=== PATIENT | male | born 1970 | race Caucasian/White ===

== ENCOUNTER 2017-12-03 14:47 | Inpatient (IN) | payer OTHER ==
[2017-12-03 17:05] VITALS: BMI 22.4
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
[2017-12-03] MEDS ORDERED: ACETAMINOPHEN 325 MG TABLET (FP) PO PRN (17:35)
[2017-12-03] MEDS ORDERED: MAGNESIUM CITRATE 300 ML BOTTLE PO PRN (17:35)
[2017-12-03] MEDS ORDERED: NICOTINE POLACRILEX 2 MG GUM BC PRN (17:35)
[2017-12-03] MEDS ORDERED: guaiFENesin/D-METHORPHAN HB 10 ML UNIT-DOSE CUPS PO PRN (17:35)
[2017-12-03] MEDS ORDERED: IBUPROFEN 400 MG TABLET (FP) PO PRN (17:35)
[2017-12-03] MEDS ORDERED: LOPERAMIDE HCL 2 MG CAPSULE PO PRN (17:35)
[2017-12-03] MEDS ORDERED: P-EPHED 60MG/TRIPROLIDI 2.5MG TABLET PO PRN (17:35)
[2017-12-03] MEDS ORDERED: MAGNESIUM HYDROX 2400MG/30ML ORAL SUSPENSION 30 ML CUP PO PRN (17:35)
[2017-12-03] MEDS ORDERED: hydrOXYzine PAMOATE 50 MG CAPSULE (FP) PO PRN (17:35)
[2017-12-03] MEDS ORDERED: MENTHOL/PHENOL 1 EACH UD MM PRN (17:35)
[2017-12-03] MEDS ORDERED: METHADONE HCL 10 MG TABLET (FOR DETOX USE ONLY) PO ONE ×2 (20:30→23:00)
[2017-12-03] MEDS: diazePAM 5 MG TABLET PO PRN (21:22)
[2017-12-03] MEDS: THIAMINE HCL 100 MG TABLET (FP) PO SCH (21:30)
[2017-12-03] MEDS ORDERED: MELATONIN 5 MG TABLETS PO PRN (22:00)
[2017-12-03 23:17] LABS: URINE APPEARANCE TURBID; URINE BILIRUBIN NEGATIVE (<2.0 mg/dL); URINE COLOR YELLOW; URINE GLUCOSE (UA) NEGATIVE (NEGATIVE); URINE KETONE NEGATIVE (NEGATIVE); URINE LEUK ESTERASE NEGATIVE (NEGATIVE); URINE NITRITE NEGATIVE (NEGATIVE); URINE PROTEIN NEGATIVE (NEGATIVE)
[2017-12-04] MEDS ORDERED: METHADONE HCL 10 MG TABLET (FOR DETOX USE ONLY) PO ONE (10:00)
[2017-12-04] MEDS: NICOTINE 14 MG/24 HOURS TOPICAL PATCH TD SCH (10:17)
[2017-12-04] MEDS: PRENATAL VITAMINS W/ FOLIC ACID TABLET (FP) PO SCH (10:17)
[2017-12-04 10:37] LABS: CHLORIDE 105 mmol/L (98-107); POTASSIUM 4.1 mmol/L (3.5-5.1); SODIUM 142 mmol/L (136-145)
[2017-12-04 10:41] LABS: HEMATOCRIT 37.7 % (35.4-49); HEMOGLOBIN 12.9 GM/dL (11.7-16.9); MCH 32.9 pg (25.7-33.7); MCHC 34.2 g/dl (32.0-35.9); MEAN CELL VOLUME 96.2 fl (80-96); MEAN PLT VOLUME 8.2 fl (7.5-11.1); PLATELET COUNT 284 K/MM3 (134-434); RBC 3.92 M/mm3 (4.00-5.60); RDW 12.8 % (11.9-15.9); WHITE BLOOD COUNT 7.4 K/mm3 (4.0-10.0)
[2017-12-04 10:49] LABS: ALBUMIN 3.8 g/dl (3.4-5.0); ALK PHOS 78 U/L (45-117); ANION GAP 8 (8-16); BILIRUBIN,TOTAL 1.2 mg/dL (0.2-1.0); BLOOD UREA NITROGEN 13 mg/dL (7-18); CALCIUM 8.9 mg/dL (8.5-10.1); CO2 29 mmol/L (21-32); CREATININE 0.9 mg/dL (0.7-1.3); GLUCOSE,RANDOM 106 mg/dL (74-106); SGOT/AST 18 U/L (15-37); SGPT/ALT 23 U/L (12-78); TOT PROT 7.2 g/dl (6.4-8.2)
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
--- NOTE | 2017-12-04 12:24 | PN ---
BHS COWS - Scale Resting Pulse: 0= [place] 80 or Below Sweatin= Chills/Flushing Restless Observation: 1= Difficult to Sit Still Pupil Size: 0= Normal to Room Light Bone or Joint Aches: 2= Severe Diffuse Aches Runny Nose/ Eye Tearin= Nasal Congestion GI Upset > 30mins: 1= Stomach Cramp Tremor Observation of Outstretched Hands: 0= None Yawning Observation: 2= >3x During Session Anxiety or Irritability: 2=Irritable/Anxious Goose Flesh Skin: 3=Piloerection COWS Score: 13 BHS Progress Note (SOAP) Subjective: Sweating, Fatigue, Body Aches. Objective: PATIENT A & O X 3, OBSERVED AMBULATING ON UNIT. NO ACUTE DISTRESS. 12/04/17 12:27 Vital Signs Temperature 97.6 F 12/04/17 10:04 Pulse Rate 58 L 12/04/17 10:04 Respiratory Rate 20 12/04/17 10:04 Blood Pressure 95/60 12/04/17 10:04 O2 Sat by Pulse Oximetry (%) Laboratory Tests 12/03/17 12/04/17 12/04/17 Unknown 08:15 08:15 WBC 7.4 RBC 3.92 L Hgb 12.9 Hct 37.7 MCV 96.2 H MCH 32.9 MCHC 34.2 RDW 12.8 Plt Count 284 MPV 8.2 Sodium 142 Potassium 4.1 Chloride 105 Carbon Dioxide 29 Anion Gap 8 BUN 13 Creatinine 0.9 Creat Clearance w eGFR > 60 Random Glucose 106 D Calcium 8.9 Total Bilirubin 1.2 H AST 18 ALT 23 Alkaline Phosphatase 78 Total Protein 7.2 Albumin 3.8 Urine Color Yellow Urine Appearance Turbid Urine pH 5.0 Ur Specific [place] 1.032 Urine Protein Negative Urine Glucose (UA) Negative Urine Ketones Negative Urine Blood Negative Urine Nitrite Negative Urine Bilirubin Negative Urine Urobilinogen 2.0 Ur Leukocyte Esterase Negative RPR Titer HIV 1&2 Antibody Screen HIV P24 Antigen 12/04/17 12/04/17 08:15 08:15 WBC RBC Hgb Hct MCV MCH MCHC RDW Plt Count MPV Sodium Potassium Chloride Carbon Dioxide Anion Gap BUN Creatinine Creat Clearance w eGFR Random Glucose Calcium Total Bilirubin AST ALT Alkaline Phosphatase Total Protein Albumin Urine Color Urine Appearance Urine pH Ur Specific [place] Urine Protein Urine Glucose (UA) Urine Ketones Urine Blood Urine Nitrite Urine Bilirubin Urine Urobilinogen Ur Leukocyte Esterase RPR Titer Nonreactive HIV 1&2 Antibody Screen Negative HIV P24 Antigen Negative LABS NOTED. Assessment: 12/04/17 12:28 WITHDRAWAL SYMPTOMS. Plan: CONTINUE DETOX. INCREASE DAILY PO FLUID INTAKE.
[2017-12-04] MEDS: diazePAM 5 MG TABLET PO PRN (12:55)
--- NOTE | 2017-12-04 13:11 | EKG ---
Test Reason : Blood Pressure : / mmHG Vent. Rate : 050 BPM Atrial Rate : 050 BPM P-R Int : 154 ms QRS Dur : 082 ms QT Int : 432 ms P-R-T Axes : 073 057 048 degrees QTc Int : 393 ms SINUS BRADYCARDIA OTHERWISE NORMAL ECG NO PREVIOUS ECGS AVAILABLE Confirmed by MD MILTON, AKIRA ([id number]) on 12/04/2017 1:10:45 PM Referred By: Confirmed By:AKIRA ROSE MD
[2017-12-04] MEDS: risperiDONE 1 MG TABLET (FP) PO SCH (22:19)
[2017-12-04] MEDS: THIAMINE HCL 100 MG TABLET (FP) PO SCH (22:19)
[2017-12-04] MEDS: ZOLPIDEM TARTRATE 10 MG TABLET (PARK CARE ONLY) PO PRN (22:21)
[2017-12-05] MEDS ORDERED: METHADONE HCL 5 MG TABLET (FOR DETOX USE ONLY) PO ONE (10:00)
[2017-12-05] MEDS: SERTRALINE HCL 50 MG TABLET (FP) PO SCH (10:16)
[2017-12-05] MEDS: PRENATAL VITAMINS W/ FOLIC ACID TABLET (FP) PO SCH (10:16)
[2017-12-05] MEDS: diazePAM 5 MG TABLET PO PRN ×3 (10:16→22:09)
[2017-12-05] MEDS: NICOTINE 14 MG/24 HOURS TOPICAL PATCH TD SCH (10:16)
[2017-12-05] MEDS ORDERED: NAPROXEN 375 MG TABLET (FP) PO ONE (15:05)
[2017-12-05] MEDS: LIDOCAINE 5% TOPICAL PATCH TP SCH (15:25)
[2017-12-05] MEDS: MAG HYDROX/AL HYDROX/SIMETH 30 ML UNIT-DOSE CUP PO PRN (15:25)
--- NOTE | 2017-12-05 16:38 | PN ---
BHS COWS - Scale Resting Pulse: 0= [place] 80 or Below Sweatin= Chills/Flushing Restless Observation: 1= Difficult to Sit Still Pupil Size: 0= Normal to Room Light Bone or Joint Aches: 4=Acute Joint/Muscle Pain Runny Nose/ Eye Tearin= None GI Upset > 30mins: 0= None Tremor Observation of Outstretched Hands: 0= None Yawning Observation: 1= 1-2x During Session Anxiety or Irritability: 2=Irritable/Anxious Goose Flesh Skin: 3=Piloerection COWS Score: 12 BHS Progress Note (SOAP) Subjective: Sweating, Fatigue, Body Aches. Objective: PATIENT A & O X 3, OBSERVED AMBULATING ON UNIT. NO ACUTE DISTRESS. 12/05/17 16:36 Vital Signs Temperature 96.8 F L 12/05/17 14:01 Pulse Rate 64 12/05/17 14:01 Respiratory Rate 18 12/05/17 14:01 Blood Pressure 120/73 12/05/17 14:01 O2 Sat by Pulse Oximetry (%) Laboratory Tests 12/03/17 12/04/17 12/04/17 Unknown 08:15 08:15 WBC 7.4 RBC 3.92 L Hgb 12.9 Hct 37.7 MCV 96.2 H MCH 32.9 MCHC 34.2 RDW 12.8 Plt Count 284 MPV 8.2 Sodium 142 Potassium 4.1 Chloride 105 Carbon Dioxide 29 Anion Gap 8 BUN 13 Creatinine 0.9 Creat Clearance w eGFR > 60 Random Glucose 106 D Calcium 8.9 Total Bilirubin 1.2 H AST 18 ALT 23 Alkaline Phosphatase 78 Total Protein 7.2 Albumin 3.8 Urine Color Yellow Urine Appearance Turbid Urine pH 5.0 Ur Specific [place] 1.032 Urine Protein Negative Urine Glucose (UA) Negative Urine Ketones Negative Urine Blood Negative Urine Nitrite Negative Urine Bilirubin Negative Urine Urobilinogen 2.0 Ur Leukocyte Esterase Negative RPR Titer HIV 1&2 Antibody Screen HIV P24 Antigen 12/04/17 12/04/17 08:15 08:15 WBC RBC Hgb Hct MCV MCH MCHC RDW Plt Count MPV Sodium Potassium Chloride Carbon Dioxide Anion Gap BUN Creatinine Creat Clearance w eGFR Random Glucose Calcium Total Bilirubin AST ALT Alkaline Phosphatase Total Protein Albumin Urine Color Urine Appearance Urine pH Ur Specific [place] Urine Protein Urine Glucose (UA) Urine Ketones Urine Blood Urine Nitrite Urine Bilirubin Urine Urobilinogen Ur Leukocyte Esterase RPR Titer Nonreactive HIV 1&2 Antibody Screen Negative HIV P24 Antigen Negative LABS NOTED. Assessment: 12/05/17 16:37 WITHDRAWAL SYMPTOMS. Plan: CONTINUE DETOX. NAPROXEN, LIDODERM PATCH FOR BODY / BACK ACHES.
[2017-12-05] MEDS: THIAMINE HCL 100 MG TABLET (FP) PO SCH (22:08)
[2017-12-05] MEDS: risperiDONE 1 MG TABLET (FP) PO SCH (22:08)
[2017-12-05] MEDS: LIDOCAINE PATCH REMOVAL MC SCH (22:09)
[2017-12-05] MEDS: ZOLPIDEM TARTRATE 10 MG TABLET (PARK CARE ONLY) PO PRN (22:22)
[2017-12-05] MEDS: NAPROXEN 375 MG TABLET (FP) PO SCH (23:03)
[2017-12-06] MEDS ORDERED: METHADONE HCL 5 MG TABLET (FOR DETOX USE ONLY) PO ONE (10:00)
[2017-12-06] MEDS: PRENATAL VITAMINS W/ FOLIC ACID TABLET (FP) PO SCH (10:07)
[2017-12-06] MEDS: SERTRALINE HCL 50 MG TABLET (FP) PO SCH (10:07)
[2017-12-06] MEDS: LIDOCAINE 5% TOPICAL PATCH TP SCH (10:07)
[2017-12-06] MEDS: NICOTINE 14 MG/24 HOURS TOPICAL PATCH TD SCH (10:07)
[2017-12-06] MEDS: diazePAM 5 MG TABLET PO PRN ×2 (10:09→17:14)
[2017-12-06] MEDS: NAPROXEN 375 MG TABLET (FP) PO SCH ×2 (10:42→22:18)
[2017-12-06] MEDS: MAG HYDROX/AL HYDROX/SIMETH 30 ML UNIT-DOSE CUP PO PRN (11:08)
--- NOTE | 2017-12-06 13:03 | PN ---
BHS Progress Note (SOAP) Subjective: Sweating, Body Aches. Objective: PATIENT A & O X 3, OBSERVED AMBULATING ON UNIT. NO ACUTE DISTRESS. 12/06/17 13:02 Vital Signs Temperature 98 F 12/06/17 09:22 Pulse Rate 63 12/06/17 09:22 Respiratory Rate 20 12/06/17 09:22 Blood Pressure 109/67 12/06/17 09:22 O2 Sat by Pulse Oximetry (%) Laboratory Tests 12/03/17 12/04/17 12/04/17 Unknown 08:15 08:15 WBC 7.4 RBC 3.92 L Hgb 12.9 Hct 37.7 MCV 96.2 H MCH 32.9 MCHC 34.2 RDW 12.8 Plt Count 284 MPV 8.2 Sodium 142 Potassium 4.1 Chloride 105 Carbon Dioxide 29 Anion Gap 8 BUN 13 Creatinine 0.9 Creat Clearance w eGFR > 60 Random Glucose 106 D Calcium 8.9 Total Bilirubin 1.2 H AST 18 ALT 23 Alkaline Phosphatase 78 Total Protein 7.2 Albumin 3.8 Urine Color Yellow Urine Appearance Turbid Urine pH 5.0 Ur Specific [place] 1.032 Urine Protein Negative Urine Glucose (UA) Negative Urine Ketones Negative Urine Blood Negative Urine Nitrite Negative Urine Bilirubin Negative Urine Urobilinogen 2.0 Ur Leukocyte Esterase Negative RPR Titer HIV 1&2 Antibody Screen HIV P24 Antigen 12/04/17 12/04/17 08:15 08:15 WBC RBC Hgb Hct MCV MCH MCHC RDW Plt Count MPV Sodium Potassium Chloride Carbon Dioxide Anion Gap BUN Creatinine Creat Clearance w eGFR Random Glucose Calcium Total Bilirubin AST ALT Alkaline Phosphatase Total Protein Albumin Urine Color Urine Appearance Urine pH Ur Specific [place] Urine Protein Urine Glucose (UA) Urine Ketones Urine Blood Urine Nitrite Urine Bilirubin Urine Urobilinogen Ur Leukocyte Esterase RPR Titer Nonreactive HIV 1&2 Antibody Screen Negative HIV P24 Antigen Negative LABS NOTED. Assessment: 12/06/17 13:03 WITHDRAWAL SYMPTOMS. Plan: CONTINUE DETOX.
[2017-12-06] MEDS: THIAMINE HCL 100 MG TABLET (FP) PO SCH (22:17)
[2017-12-06] MEDS: LIDOCAINE PATCH REMOVAL MC SCH (22:18)
[2017-12-06] MEDS: risperiDONE 1 MG TABLET (FP) PO SCH (22:18)
[2017-12-06] MEDS: ZOLPIDEM TARTRATE 10 MG TABLET (PARK CARE ONLY) PO PRN (22:20)
[2017-12-07] MEDS ORDERED: METHADONE HCL 10 MG TABLET (FOR DETOX USE ONLY) PO ONE (10:00)
[2017-12-07] MEDS: PRENATAL VITAMINS W/ FOLIC ACID TABLET (FP) PO SCH (10:10)
[2017-12-07] MEDS: SERTRALINE HCL 50 MG TABLET (FP) PO SCH (10:10)
[2017-12-07] MEDS: MAG HYDROX/AL HYDROX/SIMETH 30 ML UNIT-DOSE CUP PO PRN (10:11)
[2017-12-07] MEDS: LIDOCAINE 5% TOPICAL PATCH TP SCH (10:11)
[2017-12-07] MEDS: NAPROXEN 375 MG TABLET (FP) PO SCH ×2 (10:11→22:13)
[2017-12-07] MEDS: NICOTINE 14 MG/24 HOURS TOPICAL PATCH TD SCH (10:11)
--- NOTE | 2017-12-07 13:34 | PN ---
BHS Progress Note (SOAP) Subjective: Body Aches, Anxious. Objective: PATIENT A & O X 3, OBSERVED AMBULATING ON UNIT. NO ACUTE DISTRESS. 12/07/17 13:32 Vital Signs Temperature 96.5 F L 12/07/17 13:09 Pulse Rate 71 12/07/17 13:09 Respiratory Rate 18 12/07/17 13:09 Blood Pressure 122/74 12/07/17 13:09 O2 Sat by Pulse Oximetry (%) Laboratory Tests 12/03/17 12/04/17 12/04/17 Unknown 08:15 08:15 WBC 7.4 RBC 3.92 L Hgb 12.9 Hct 37.7 MCV 96.2 H MCH 32.9 MCHC 34.2 RDW 12.8 Plt Count 284 MPV 8.2 Sodium 142 Potassium 4.1 Chloride 105 Carbon Dioxide 29 Anion Gap 8 BUN 13 Creatinine 0.9 Creat Clearance w eGFR > 60 Random Glucose 106 D Calcium 8.9 Total Bilirubin 1.2 H AST 18 ALT 23 Alkaline Phosphatase 78 Total Protein 7.2 Albumin 3.8 Urine Color Yellow Urine Appearance Turbid Urine pH 5.0 Ur Specific [place] 1.032 Urine Protein Negative Urine Glucose (UA) Negative Urine Ketones Negative Urine Blood Negative Urine Nitrite Negative Urine Bilirubin Negative Urine Urobilinogen 2.0 Ur Leukocyte Esterase Negative RPR Titer HIV 1&2 Antibody Screen HIV P24 Antigen 12/04/17 12/04/17 08:15 08:15 WBC RBC Hgb Hct MCV MCH MCHC RDW Plt Count MPV Sodium Potassium Chloride Carbon Dioxide Anion Gap BUN Creatinine Creat Clearance w eGFR Random Glucose Calcium Total Bilirubin AST ALT Alkaline Phosphatase Total Protein Albumin Urine Color Urine Appearance Urine pH Ur Specific [place] Urine Protein Urine Glucose (UA) Urine Ketones Urine Blood Urine Nitrite Urine Bilirubin Urine Urobilinogen Ur Leukocyte Esterase RPR Titer Nonreactive HIV 1&2 Antibody Screen Negative HIV P24 Antigen Negative LABS NOTED. Assessment: 12/07/17 13:33 WITHDRAWAL SYMPTOMS. Plan: CONTINUE DETOX. PATIENT SCHEDULED FOR D/C TOMORROW.
[2017-12-07] MEDS ORDERED: RANITIDINE HCL 150 MG TABLET (FP) PO ONE (14:00)
[2017-12-07] MEDS: ZOLPIDEM TARTRATE 10 MG TABLET (PARK CARE ONLY) PO PRN (21:59)
[2017-12-07] MEDS ORDERED: RANITIDINE HCL 150 MG TABLET (FP) PO SCH (22:00)
[2017-12-07] MEDS: THIAMINE HCL 100 MG TABLET (FP) PO SCH (22:12)
[2017-12-07] MEDS: risperiDONE 1 MG TABLET (FP) PO SCH (22:14)
[2017-12-07] MEDS: LIDOCAINE PATCH REMOVAL MC SCH (22:14)
[2017-12-08] MEDS ORDERED: METHADONE HCL 5 MG TABLET (FOR DETOX USE ONLY) PO ONE (06:00)
[2017-12-08 06:17] VITALS: BP 120/71; PULSE 66; TEMP 97.6
--- NOTE | 2017-12-08 17:36 | PN ---
BHS Progress Note (SOAP) Subjective: Patient denies current Detox symptoms and reports that he feels well overall. Objective: PATIENT A & O X 3, OBSERVED AMBULATING ON UNIT. NO ACUTE DISTRESS. 12/08/17 17:35 Vital Signs Temperature 97.6 F 12/08/17 06:17 Pulse Rate 66 12/08/17 06:17 Respiratory Rate 18 12/08/17 06:17 Blood Pressure 120/71 12/08/17 06:17 O2 Sat by Pulse Oximetry (%) Laboratory Tests 12/03/17 12/04/17 12/04/17 Unknown 08:15 08:15 WBC 7.4 RBC 3.92 L Hgb 12.9 Hct 37.7 MCV 96.2 H MCH 32.9 MCHC 34.2 RDW 12.8 Plt Count 284 MPV 8.2 Sodium 142 Potassium 4.1 Chloride 105 Carbon Dioxide 29 Anion Gap 8 BUN 13 Creatinine 0.9 Creat Clearance w eGFR > 60 Random Glucose 106 D Calcium 8.9 Total Bilirubin 1.2 H AST 18 ALT 23 Alkaline Phosphatase 78 Total Protein 7.2 Albumin 3.8 Urine Color Yellow Urine Appearance Turbid Urine pH 5.0 Ur Specific [place] 1.032 Urine Protein Negative Urine Glucose (UA) Negative Urine Ketones Negative Urine Blood Negative Urine Nitrite Negative Urine Bilirubin Negative Urine Urobilinogen 2.0 Ur Leukocyte Esterase Negative RPR Titer HIV 1&2 Antibody Screen HIV P24 Antigen 12/04/17 12/04/17 08:15 08:15 WBC RBC Hgb Hct MCV MCH MCHC RDW Plt Count MPV Sodium Potassium Chloride Carbon Dioxide Anion Gap BUN Creatinine Creat Clearance w eGFR Random Glucose Calcium Total Bilirubin AST ALT Alkaline Phosphatase Total Protein Albumin Urine Color Urine Appearance Urine pH Ur Specific [place] Urine Protein Urine Glucose (UA) Urine Ketones Urine Blood Urine Nitrite Urine Bilirubin Urine Urobilinogen Ur Leukocyte Esterase RPR Titer Nonreactive HIV 1&2 Antibody Screen Negative HIV P24 Antigen Negative LABS NOTED. Assessment: 12/08/17 17:35 COMPLETION OF DETOX REGIMEN. Plan: PATIENT SCHEDULED FOR DISCHARGE FROM DETOX UNIT TODAY.
--- NOTE | 2017-12-08 17:38 | DS ---
[facility] Detox Discharge Summary Admission Date: 12/03/17 Discharge Date: 12/08/17 - History Present History: Cannabis Dependence, Cocaine Dependence, Opioid Dependence Additional Comments: PATIENT RETURNING HOME. PATIENT ADVISED TO CONSIDER LOCAL 12-STEP / NA / AA OUTPATIENT SUPPORT GROUPS FOR AFTERCARE. PATIENT WAS DISCHARGED FROM DETOX UNIT IN STABLE MEDICAL CONDITION. Pertinent Past History: Depression, Bipolar Disorder, Schizoaffective Disorder, G.E.R.D., Nicotine Dependence, Insomnia. - Physical Exam Results Vital Signs: Vital Signs Temperature 97.6 F 12/08/17 06:17 Pulse Rate 66 12/08/17 06:17 Respiratory Rate 18 12/08/17 06:17 Blood Pressure 120/71 12/08/17 06:17 O2 Sat by Pulse Oximetry (%) Pertinent Admission Physical Exam Findings: WITHDRAWAL SYMPTOMS. Laboratory Tests 12/03/17 12/04/17 12/04/17 Unknown 08:15 08:15 WBC 7.4 RBC 3.92 L Hgb 12.9 Hct 37.7 MCV 96.2 H MCH 32.9 MCHC 34.2 RDW 12.8 Plt Count 284 MPV 8.2 Sodium 142 Potassium 4.1 Chloride 105 Carbon Dioxide 29 Anion Gap 8 BUN 13 Creatinine 0.9 Creat Clearance w eGFR > 60 Random Glucose 106 D Calcium 8.9 Total Bilirubin 1.2 H AST 18 ALT 23 Alkaline Phosphatase 78 Total Protein 7.2 Albumin 3.8 Urine Color Yellow Urine Appearance Turbid Urine pH 5.[address] 1.032 Urine Protein Negative Urine Glucose (UA) Negative Urine Ketones Negative Urine Blood Negative Urine Nitrite Negative Urine Bilirubin Negative Urine Urobilinogen 2.0 Ur Leukocyte Esterase Negative RPR Titer HIV 1&2 Antibody Screen HIV P24 Antigen 12/04/17 12/04/17 08:15 08:15 WBC RBC Hgb Hct MCV MCH MCHC RDW Plt Count MPV Sodium Potassium Chloride Carbon Dioxide Anion Gap BUN Creatinine Creat Clearance w eGFR Random Glucose Calcium Total Bilirubin AST ALT Alkaline Phosphatase Total Protein Albumin Urine Color Urine Appearance Urine pH Ur Specific [place] Urine Protein Urine Glucose (UA) Urine Ketones Urine Blood Urine Nitrite Urine Bilirubin Urine Urobilinogen Ur Leukocyte Esterase RPR Titer Nonreactive HIV 1&2 Antibody Screen Negative HIV P24 Antigen Negative LABS NOTED. - Treatment Hospital Course: Detox Protocol Followed, Detoxed Safely, Responded well, Discharged Condition Good Patient has Accepted a Rehab Referral to: PATIENT ADVISED TO CONSIDER LOCAL 123- STEP/NA/AA OUTPATIENT SUPPORT GROUPS. - Medication Discharge Medications: Ambulatory Orders Risperidone [Risperdal] 1 mg PO HS #30 tablet 12/07/17 Sertraline HCl [Zoloft -] 50 mg PO DAILY #30 tablet 12/07/17 - Diagnosis (1) Cocaine dependence Status: Acute Qualifiers: Substance use status: uncomplicated Qualified Code(s): F14.20 - Cocaine dependence, uncomplicated (2) Opioid dependence with withdrawal Status: Acute (3) GERD (gastroesophageal reflux disease) Status: Chronic Qualifiers: Esophagitis presence: without esophagitis Qualified Code(s): K21.9 - Gastro -esophageal reflux disease without esophagitis (4) Nicotine dependence Status: Acute Qualifiers: Nicotine product type: cigarettes Substance use status: uncomplicated Qualified Code(s): F17.210 - Nicotine dependence, cigarettes, uncomplicated (5) Psychiatric disorder Status: Suspected (6) Insomnia Status: Acute Qualifiers: Insomnia type: unspecified Qualified Code(s): G47.00 - Insomnia, unspecified (7) Substance induced mood disorder Status: Acute (8) Schizoaffective disorder Status: Chronic Qualifiers: Schizoaffective disorder type: unspecified Qualified Code(s): F25.9 - Schizoaffective disorder, unspecified - AMA Did Patient Leave Against Medical Advice: No
== END 2017-12-08 08:34 | disposition home or self-care (01) | DRG 773 ==
LOC: YASAS 14:47 → Y3N 20:17
PROVIDERS: ADMIT Surgery; ATTEND Surgery
PROC: HZ2ZZZZ Detoxification Services for Substance Abuse Treatment (ICD-10-PCS; principal; 2017-12-03)
DX: F11.23 Opioid dependence with withdrawal (principal); F14.20 Cocaine dependence, uncomplicated; F12.20 Cannabis dependence, uncomplicated; F17.213 Nicotine dependence, cigarettes, with withdrawal; F19.24 Other psychoactive substance dependence with psychoactive substance-induced mood disorder; F31.9 Bipolar disorder, unspecified; F25.9 Schizoaffective disorder, unspecified; F32.9 Major depressive disorder, single episode, unspecified; F43.10 Post-traumatic stress disorder, unspecified; F99 Mental disorder, not otherwise specified; K21.9 Gastro-esophageal reflux disease without esophagitis; G47.00 Insomnia, unspecified; R45.851 Suicidal ideations; Z91.5 Personal history of self-harm
CPT/HCPCS: 36415; 80053; 81003; 85027; 86593; 87389; 93005; 93010; J2794

== ENCOUNTER 2018-04-01 10:27 | Inpatient (IN) | payer OTHER ==
[2018-04-01 11:46] VITALS: BMI 22.9
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
[2018-04-01] MEDS ORDERED: LOPERAMIDE HCL 2 MG CAPSULE PO PRN (13:59)
[2018-04-01] MEDS ORDERED: ACETAMINOPHEN 325 MG TABLET (FP) PO PRN (13:59)
[2018-04-01] MEDS ORDERED: guaiFENesin/D-METHORPHAN HB 10 ML UNIT-DOSE CUPS PO PRN (13:59)
[2018-04-01] MEDS ORDERED: MAGNESIUM CITRATE 300 ML BOTTLE PO PRN (13:59)
[2018-04-01] MEDS ORDERED: P-EPHED 60MG/TRIPROLIDI 2.5MG TABLET PO PRN (13:59)
[2018-04-01] MEDS ORDERED: hydrOXYzine PAMOATE 25 MG CAPSULE (FP) PO PRN (13:59)
[2018-04-01] MEDS ORDERED: MAGNESIUM HYDROX 2400MG/30ML ORAL SUSPENSION 30 ML CUP PO PRN (13:59)
[2018-04-01] MEDS ORDERED: MENTHOL/PHENOL 1 EACH UD MM PRN (13:59)
[2018-04-01] MEDS ORDERED: IBUPROFEN 400 MG TABLET (FP) PO PRN (13:59)
[2018-04-01] MEDS ORDERED: METHADONE HCL 10 MG TABLET (FOR DETOX USE ONLY) PO ONE ×2 (14:15→23:00)
[2018-04-01] MEDS: diazePAM 5 MG TABLET PO PRN ×2 (14:35→22:43)
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
[2018-04-01 20:36] LABS: URINE APPEARANCE CLEAR; URINE BILIRUBIN NEGATIVE (<2.0 mg/dL); URINE COLOR AMBER; URINE GLUCOSE (UA) NEGATIVE (NEGATIVE); URINE KETONE NEGATIVE (NEGATIVE); URINE LEUK ESTERASE NEGATIVE (NEGATIVE); URINE NITRITE NEGATIVE (NEGATIVE); URINE PROTEIN NEGATIVE (NEGATIVE); URINE UROBILINOGEN 4.0 E.U/dl mg/dL (0.2-1.0)
[2018-04-01 20:45] LABS: URINE MUCUS FEW
[2018-04-01] MEDS: THIAMINE HCL 100 MG TABLET (FP) PO SCH (22:20)
[2018-04-01] MEDS: BACITRACIN 0.9 GM PACKET TP SCH (22:44)
[2018-04-02] MEDS ORDERED: METHADONE HCL 10 MG TABLET (FOR DETOX USE ONLY) PO ONE (10:00)
[2018-04-02 10:15] LABS: HEMATOCRIT 40.8 % (35.4-49); HEMOGLOBIN 13.7 GM/dL (11.7-16.9); MCH 32.2 pg (25.7-33.7); MCHC 33.5 g/dl (32.0-35.9); MEAN CELL VOLUME 96.1 fl (80-96); MEAN PLT VOLUME 8.4 fl (7.5-11.1); PLATELET COUNT 261 K/MM3 (134-434); RBC 4.25 M/mm3 (4.00-5.60); RDW 13.9 % (11.9-15.9); WHITE BLOOD COUNT 6.6 K/mm3 (4.0-10.0)
[2018-04-02 10:20] LABS: ALBUMIN 3.4 g/dl (3.4-5.0); ALK PHOS 126 U/L (45-117); ANION GAP 8 MMOL/L (8-16); BILIRUBIN,TOTAL 0.4 mg/dL (0.2-1); BLOOD UREA NITROGEN 19 mg/dL (7-18); CALCIUM 8.6 mg/dL (8.5-10.1); CHLORIDE 103 mmol/L (98-107); CO2 29 mmol/L (21-32); CREATININE 0.8 mg/dL (0.55-1.3); GLUCOSE,RANDOM 104 mg/dL (74-106); POTASSIUM 4.3 mmol/L (3.5-5.1); SGOT/AST 54 U/L (15-37); SGPT/ALT 137 U/L (13-61); SODIUM 140 mmol/L (136-145); TOT PROT 7.2 g/dl (6.4-8.2)
[2018-04-02] MEDS: PRENATAL VITAMINS W/ FOLIC ACID TABLET (FP) PO SCH (10:37)
[2018-04-02] MEDS: diazePAM 5 MG TABLET PO PRN ×2 (10:38→22:16)
[2018-04-02] MEDS: BACITRACIN 0.9 GM PACKET TP SCH ×2 (10:39→22:15)
[2018-04-02] MEDS ORDERED: FLU VACCINE QUAD 60 MCG/0.5 ML (MDV 18-19) IM ONE (12:00)
--- NOTE | 2018-04-02 12:39 | PN ---
S COWS - Scale Resting Pulse: 0= [place] 80 or Below Sweatin= Chills/Flushing Restless Observation: 1= Difficult to Sit Still Pupil Size: 1= Pupils >than Normal Bone or Joint Aches: 2= Severe Diffuse Aches Runny Nose/ Eye Tearin= Nasal Congestion GI Upset > 30mins: 1= Stomach Cramp Tremor Observation of Outstretched Hands: 2= Slight Tremor Visible Yawning Observation: 2= >3x During Session Anxiety or Irritability: 1=Feels Anxious/Irritable Goose Flesh Skin: 0=Smooth Skin COWS Score: 12 S Progress Note (SOAP) Subjective: body aches joints pain muscle cramp tremor sweat Objective: 04/02/18 12:40 Vital Signs Temperature 98.2 F 04/02/18 09:44 Pulse Rate 55 L 04/02/18 09:44 Respiratory Rate 16 04/02/18 09:44 Blood Pressure 110/67 04/02/18 09:44 O2 Sat by Pulse Oximetry (%) Laboratory Last Values WBC 6.6 K/mm3 (4.0-10.0) 04/02/18 06:30 RBC 4.25 M/mm3 (4.00-5.60) 04/02/18 06:30 Hgb 13.7 GM/dL (11.7-16.9) 04/02/18 06:30 Hct 40.8 % (35.4-49) 04/02/18 06:30 MCV 96.1 fl (80-96) H 04/02/18 06:30 MCH 32.2 pg (25.7-33.7) 04/02/18 06:30 MCHC 33.5 g/dl (32.0-35.9) 04/02/18 06:30 RDW 13.9 % (11.9-15.9) 04/02/18 06:30 Plt Count 261 K/MM3 (134-434) 04/02/18 06:30 MPV 8.4 fl (7.5-11.1) 04/02/18 06:30 Sodium 140 mmol/L (136-145) 04/02/18 06:30 Potassium 4.3 mmol/L (3.5-5.1) 04/02/18 06:30 Chloride 103 mmol/L (98-107) 04/02/18 06:30 Carbon Dioxide 29 mmol/L (21-32) 04/02/18 06:30 Anion Gap 8 MMOL/L (8-16) 04/02/18 06:30 BUN 19 mg/dL (7-18) H 04/02/18 06:30 Creatinine 0.8 mg/dL (0.55-1.3) 04/02/18 06:30 Creat Clearance w eGFR > 60 (>60) 04/02/18 06:30 Random Glucose 104 mg/dL (74-106) 04/02/18 06:30 Calcium 8.6 mg/dL (8.5-10.1) 04/02/18 06:30 Total Bilirubin 0.4 mg/dL (0.2-1) 04/02/18 06:30 AST 54 U/L (15-37) H 04/02/18 06:30 ALT 137 U/L (13-61) H 04/02/18 06:30 Alkaline Phosphatase 126 U/L (45-117) H 04/02/18 06:30 Total Protein 7.2 g/dl (6.4-8.2) 04/02/18 06:30 Albumin 3.4 g/dl (3.4-5.0) 04/02/18 06:30 Urine Color [place] 04/01/18 19: Urine Appearance Clear 04/01/18 19: Urine pH 6.0 (5.0-8.0) 04/01/18 19:30 Ur Specific [place] 1.023 (1.010-1.035) 04/01/18 19: Urine Protein Negative (NEGATIVE) 04/01/18 19: Urine Glucose (UA) Negative (NEGATIVE) 04/01/18 19: Urine Ketones Negative (NEGATIVE) 04/01/18 19: Urine Blood 1+ (NEGATIVE) H 04/01/18 19: Urine Nitrite Negative (NEGATIVE) 04/01/18: Urine Bilirubin Negative (<2.0 mg/dL) 04/01/18 19: Urine Urobilinogen 4.0 e.u/dl mg/dL (0.2-1.0) 04/01/18 19:30 Ur Leukocyte Esterase Negative (NEGATIVE) 04/01/18 19: Urine WBC (Auto) 1 /hpf (3-5) 04/01/18 19:30 Urine RBC (Auto) None /hpf (0-3) 04/01/18 19:30 Urine Mucus Few 04/01/18 19:30 RPR Titer Nonreactive (NONREACTIVE) 04/02/18 06:30 lab noted Assessment: 04/02/18 12:41 withdrawal sx Plan: continue detox
--- NOTE | 2018-04-02 16:09 | EKG ---
Test Reason : Blood Pressure : / mmHG Vent. Rate : 052 BPM Atrial Rate : 052 BPM P-R Int : 158 ms QRS Dur : 080 ms QT Int : 410 ms P-R-T Axes : 073 055 043 degrees QTc Int : 381 ms SINUS BRADYCARDIA OTHERWISE NORMAL ECG WHEN COMPARED WITH ECG OF 03-DEC-2017 20:46, NO SIGNIFICANT CHANGE WAS FOUND Confirmed by MD JAYLON, LILLY ([id number]) on 04/02/2018 4:09:03 PM Referred By: Confirmed By:LILLY IYER MD
[2018-04-02] MEDS ORDERED: NICOTINE POLACRILEX 2 MG GUM BUC PRN (18:32)
[2018-04-02] MEDS: MAG HYDROX/AL HYDROX/SIMETH 30 ML UNIT-DOSE CUP PO PRN (20:06)
[2018-04-02] MEDS: THIAMINE HCL 100 MG TABLET (FP) PO SCH (22:15)
[2018-04-03] MEDS ORDERED: METHADONE HCL 5 MG TABLET (FOR DETOX USE ONLY) PO ONE (10:00)
[2018-04-03] MEDS: NICOTINE 7 MG/24 HOURS TOPICAL PATCH TD SCH (10:24)
[2018-04-03] MEDS: SERTRALINE HCL 50 MG TABLET (FP) PO SCH (10:24)
[2018-04-03] MEDS: BACITRACIN 0.9 GM PACKET TP SCH ×2 (10:24→22:56)
[2018-04-03] MEDS: PRENATAL VITAMINS W/ FOLIC ACID TABLET (FP) PO SCH (10:24)
[2018-04-03] MEDS: diazePAM 5 MG TABLET PO PRN (10:24)
[2018-04-03] MEDS: MAG HYDROX/AL HYDROX/SIMETH 30 ML UNIT-DOSE CUP PO PRN ×2 (10:41→17:22)
--- NOTE | 2018-04-03 10:47 | PN ---
[facility] COWS - Scale Resting Pulse: 0= [place] 80 or Below Sweatin= Chills/Flushing Restless Observation: 1= Difficult to Sit Still Pupil Size: 1= Pupils >than Normal Bone or Joint Aches: 2= Severe Diffuse Aches Runny Nose/ Eye Tearin= Nasal Congestion GI Upset > 30mins: 1= Stomach Cramp Tremor Observation of Outstretched Hands: 1= Tremor [place], Not Seen Yawning Observation: 1= 1-2x During Session Anxiety or Irritability: 1=Feels Anxious/Irritable Goose Flesh Skin: 0=Smooth Skin COWS Score: 10 S Progress Note (SOAP) Subjective: sweat tremor body aches trouble sleep at night restlessness Objective: 04/03/18 11:03 Vital Signs Temperature 97.9 F 04/03/18 09:28 Pulse Rate 60 04/03/18 09:28 Respiratory Rate 16 04/03/18 09:28 Blood Pressure 107/67 04/03/18 09:28 O2 Sat by Pulse Oximetry (%) Laboratory Last Values WBC 6.6 K/mm3 (4.0-10.0) 04/02/18 06:30 RBC 4.25 M/mm3 (4.00-5.60) 04/02/18 06:30 Hgb 13.7 GM/dL (11.7-16.9) 04/02/18 06:30 Hct 40.8 % (35.4-49) 04/02/18 06:30 MCV 96.1 fl (80-96) H 04/02/18 06:30 MCH 32.2 pg (25.7-33.7) 04/02/18 06:30 MCHC 33.5 g/dl (32.0-35.9) 04/02/18 06:30 RDW 13.9 % (11.9-15.9) 04/02/18 06:30 Plt Count 261 K/MM3 (134-434) 04/02/18 06:30 MPV 8.4 fl (7.5-11.1) 04/02/18 06:30 Sodium 140 mmol/L (136-145) 04/02/18 06:30 Potassium 4.3 mmol/L (3.5-5.1) 04/02/18 06:30 Chloride 103 mmol/L (98-107) 04/02/18 06:30 Carbon Dioxide 29 mmol/L (21-32) 04/02/18 06:30 Anion Gap 8 MMOL/L (8-16) 04/02/18 06:30 BUN 19 mg/dL (7-18) H 04/02/18 06:30 Creatinine 0.8 mg/dL (0.55-1.3) 04/02/18 06:30 Creat Clearance w eGFR > 60 (>60) 04/02/18 06:30 Random Glucose 104 mg/dL (74-106) 04/02/18 06:30 Calcium 8.6 mg/dL (8.5-10.1) 04/02/18 06:30 Total Bilirubin 0.4 mg/dL (0.2-1) 04/02/18 06:30 AST 54 U/L (15-37) H 04/02/18 06:30 ALT 137 U/L (13-61) H 04/02/18 06:30 Alkaline Phosphatase 126 U/L (45-117) H 04/02/18 06:30 Total Protein 7.2 g/dl (6.4-8.2) 04/02/18 06:30 Albumin 3.4 g/dl (3.4-5.0) 04/02/18 06:30 Urine Color [place] 04/01/18 19: Urine Appearance Clear 04/01/18 19:30 Urine pH 6.0 (5.0-8.0) 04/01/18 19:30 Ur Specific [place] 1.023 (1.010-1.035) 04/01/18 19: Urine Protein Negative (NEGATIVE) 04/01/18 19: Urine Glucose (UA) Negative (NEGATIVE) 04/01/18 19:30 Urine Ketones Negative (NEGATIVE) 04/01/18 19: Urine Blood 1+ (NEGATIVE) H 04/01/18 19: Urine Nitrite Negative (NEGATIVE) 04/01/18 19: Urine Bilirubin Negative (<2.0 mg/dL) 04/01/18 19: Urine Urobilinogen 4.0 e.u/dl mg/dL (0.2-1.0) 04/01/18 19:30 Ur Leukocyte Esterase Negative (NEGATIVE) 04/01/18 19: Urine WBC (Auto) 1 /hpf (3-5) 04/01/18 19:30 Urine RBC (Auto) None /hpf (0-3) 04/01/18 19:30 Urine Mucus Few 04/01/18 19:30 RPR Titer Nonreactive (NONREACTIVE) 04/02/18 06:30 lab noted repeat alt Assessment: 04/03/18 11:05 withdrawal sx alt elevation Plan: continue detox repeat alt
[2018-04-03] MEDS: risperiDONE 1 MG TABLET (FP) PO SCH (22:25)
[2018-04-03] MEDS: THIAMINE HCL 100 MG TABLET (FP) PO SCH (22:25)
[2018-04-03] MEDS: MELATONIN 5 MG TABLETS PO PRN (22:25)
[2018-04-04] MEDS ORDERED: METHADONE HCL 5 MG TABLET (FOR DETOX USE ONLY) PO ONE (10:00)
[2018-04-04] MEDS: BACITRACIN 0.9 GM PACKET TP SCH ×2 (10:44→22:14)
[2018-04-04] MEDS: PRENATAL VITAMINS W/ FOLIC ACID TABLET (FP) PO SCH (10:45)
[2018-04-04] MEDS: SERTRALINE HCL 50 MG TABLET (FP) PO SCH (10:45)
[2018-04-04] MEDS: NICOTINE 7 MG/24 HOURS TOPICAL PATCH TD SCH (10:45)
[2018-04-04] MEDS: MAG HYDROX/AL HYDROX/SIMETH 30 ML UNIT-DOSE CUP PO PRN ×2 (10:54→22:47)
--- NOTE | 2018-04-04 11:58 | PN ---
[facility] Progress Note (SOAP) Subjective: body aches muscle cramp anxiety restlessness Objective: 04/04/18 11:55 Vital Signs Temperature 98.4 F 04/04/18 10:08 Pulse Rate 67 04/04/18 10:08 Respiratory Rate 18 04/04/18 10:08 Blood Pressure 104/65 04/04/18 10:08 O2 Sat by Pulse Oximetry (%) Laboratory Last Values WBC 6.6 K/mm3 (4.0-10.0) 04/02/18 06:30 RBC 4.25 M/mm3 (4.00-5.60) 04/02/18 06:30 Hgb 13.7 GM/dL (11.7-16.9) 04/02/18 06:30 Hct 40.8 % (35.4-49) 04/02/18 06:30 MCV 96.1 fl (80-96) H 04/02/18 06:30 MCH 32.2 pg (25.7-33.7) 04/02/18 06:30 MCHC 33.5 g/dl (32.0-35.9) 04/02/18 06:30 RDW 13.9 % (11.9-15.9) 04/02/18 06:30 Plt Count 261 K/MM3 (134-434) 04/02/18 06:30 MPV 8.4 fl (7.5-11.1) 04/02/18 06:30 Sodium 140 mmol/L (136-145) 04/02/18 06:30 Potassium 4.3 mmol/L (3.5-5.1) 04/02/18 06:30 Chloride 103 mmol/L (98-107) 04/02/18 06:30 Carbon Dioxide 29 mmol/L (21-32) 04/02/18 06:30 Anion Gap 8 MMOL/L (8-16) 04/02/18 06:30 BUN 19 mg/dL (7-18) H 04/02/18 06:30 Creatinine 0.8 mg/dL (0.55-1.3) 04/02/18 06:30 Creat Clearance w eGFR > 60 (>60) 04/02/18 06:30 Random Glucose 104 mg/dL (74-106) 04/02/18 06:30 Calcium 8.6 mg/dL (8.5-10.1) 04/02/18 06:30 Total Bilirubin 0.4 mg/dL (0.2-1) 04/02/18 06:30 AST 54 U/L (15-37) H 04/02/18 06:30 ALT 105 U/L (13-61) H 04/04/18 07:00 Alkaline Phosphatase 126 U/L (45-117) H 04/02/18 06:30 Total Protein 7.2 g/dl (6.4-8.2) 04/02/18 06:30 Albumin 3.4 g/dl (3.4-5.0) 04/02/18 06:30 Urine Color [place] 04/01/18 19: Urine Appearance Clear 04/01/18 19: Urine pH 6.0 (5.0-8.0) 04/01/18 19:30 Ur Specific [place] 1.023 (1.010-1.035) 04/01/18 19:30 Urine Protein Negative (NEGATIVE) 04/01/18 19:30 Urine Glucose (UA) Negative (NEGATIVE) 04/01/18 19:30 Urine Ketones Negative (NEGATIVE) 04/01/18 19:30 Urine Blood 1+ (NEGATIVE) H 04/01/18 19:30 Urine Nitrite Negative (NEGATIVE) 04/01/18 19: Urine Bilirubin Negative (<2.0 mg/dL) 04/01/18 19:30 Urine Urobilinogen 4.0 e.u/dl mg/dL (0.2-1.0) 04/01/18 19:30 Ur Leukocyte Esterase Negative (NEGATIVE) 04/01/18 19: Urine WBC (Auto) 1 /hpf (3-5) 04/01/18 19:30 Urine RBC (Auto) None /hpf (0-3) 04/01/18 19: Urine Mucus Few 04/01/18 19:30 RPR Titer Nonreactive (NONREACTIVE) 04/02/18 06:30 lab noted Assessment: 04/04/18 11:58 withdrawal sx Plan: continue detox
[2018-04-04 21:07] LABS: URINE APPEARANCE CLEAR; URINE BILIRUBIN NEGATIVE (<2.0 mg/dL); URINE COLOR YELLOW; URINE GLUCOSE (UA) NEGATIVE (NEGATIVE); URINE KETONE NEGATIVE (NEGATIVE); URINE LEUK ESTERASE NEGATIVE (NEGATIVE); URINE NITRITE NEGATIVE (NEGATIVE); URINE PROTEIN NEGATIVE (NEGATIVE); URINE UROBILINOGEN NEGATIVE mg/dL (0.2-1.0)
[2018-04-04] MEDS: MELATONIN 5 MG TABLETS PO PRN (22:13)
[2018-04-04] MEDS: risperiDONE 1 MG TABLET (FP) PO SCH (22:14)
[2018-04-04] MEDS: THIAMINE HCL 100 MG TABLET (FP) PO SCH (22:14)
[2018-04-05 09:18] VITALS: BP 109/72; PULSE 73; TEMP 98.1
--- NOTE | 2018-04-05 09:41 | PN ---
[facility] Progress Note Note: pt is feeling much better. no c/o withdrawals. pt will receive 10mg of methadone and will be d/c. pt will be going home.
--- NOTE | 2018-04-05 09:43 | DS ---
[facility] Detox Discharge Summary Admission Date: 04/01/18 Discharge Date: 04/05/18 - History Present History: Cannabis Dependence, Cocaine Dependence, Opioid Dependence - Physical Exam Results Vital Signs: Vital Signs Temperature 98.1 F 04/05/18 09:16 Pulse Rate 73 04/05/18 09:16 Respiratory Rate 18 04/05/18 09:16 Blood Pressure 109/72 04/05/18 09:16 O2 Sat by Pulse Oximetry (%) - Treatment Hospital Course: Detox Protocol Followed, Detoxed Safely, Responded well, Discharged Condition Good, Rehab Referral Accepted - Medication Discharge Medications: Ambulatory Orders Risperidone [Risperdal -] 1 mg PO HS #30 tablet 04/03/18 Sertraline HCl [Zoloft -] 50 mg PO DAILY #30 tablet 04/03/18 - Diagnosis (1) Bipolar disorder Current Visit: Yes Status: Acute (2) Weight loss Current Visit: Yes Status: Acute (3) Cannabis dependence Current Visit: Yes Status: Chronic (4) Cocaine dependence Current Visit: Yes Status: Chronic Qualifiers: Substance use status: uncomplicated Qualified Code(s): F14.20 - Cocaine dependence, uncomplicated (5) Insomnia Current Visit: No Status: Acute Qualifiers: Insomnia type: unspecified Qualified Code(s): G47.00 - Insomnia, unspecified (6) Nicotine dependence Current Visit: Yes Status: Acute Qualifiers: Nicotine product type: cigarettes Substance use status: uncomplicated Qualified Code(s): F17.210 - Nicotine dependence, cigarettes, uncomplicated (7) Opioid dependence with withdrawal Current Visit: Yes Status: Chronic (8) Substance induced mood disorder Current Visit: No Status: Acute (9) GERD (gastroesophageal reflux disease) Current Visit: Yes Status: Chronic Qualifiers: Esophagitis presence: without esophagitis Qualified Code(s): K21.9 - Gastro -esophageal reflux disease without esophagitis (10) Schizoaffective disorder Current Visit: No Status: Chronic Qualifiers: Schizoaffective disorder type: unspecified Qualified Code(s): F25.9 - Schizoaffective disorder, unspecified (11) Substance-induced sleep disorder Current Visit: No Status: Suspected - AMA Did Patient Leave Against Medical Advice: No (referred to ai outpatient)
[2018-04-05] MEDS: PRENATAL VITAMINS W/ FOLIC ACID TABLET (FP) PO SCH (09:49)
[2018-04-05] MEDS: BACITRACIN 0.9 GM PACKET TP SCH (09:49)
[2018-04-05] MEDS: SERTRALINE HCL 50 MG TABLET (FP) PO SCH (09:49)
[2018-04-05] MEDS ORDERED: METHADONE HCL 10 MG TABLET (FOR DETOX USE ONLY) PO ONE (10:00)
[2018-04-06] MEDS ORDERED: METHADONE HCL 5 MG TABLET (FOR DETOX USE ONLY) PO ONE (06:00)
== END 2018-04-05 10:00 | disposition home or self-care (01) | DRG 773 ==
LOC: YASAS 10:27 → Y6N 12:38
PROC: HZ2ZZZZ Detoxification Services for Substance Abuse Treatment (ICD-10-PCS; principal; 2018-04-01)
DX: F11.23 Opioid dependence with withdrawal (principal); F14.20 Cocaine dependence, uncomplicated; F12.20 Cannabis dependence, uncomplicated; F17.210 Nicotine dependence, cigarettes, uncomplicated; F31.9 Bipolar disorder, unspecified; F19.24 Other psychoactive substance dependence with psychoactive substance-induced mood disorder; F19.282 Other psychoactive substance dependence with psychoactive substance-induced sleep disorder; F25.9 Schizoaffective disorder, unspecified; G47.00 Insomnia, unspecified; K21.9 Gastro-esophageal reflux disease without esophagitis; R63.4 Abnormal weight loss; Z68.23 Body mass index [BMI] 23.0-23.9, adult; Z91.5 Personal history of self-harm
CPT/HCPCS: 36415; 80053; 81003; 81015; 84460; 85027; 86593; 90688; 93005; 93010; G0008; J2794

== ENCOUNTER 2018-08-05 14:29 | Inpatient (IN) | payer OTHER ==
[2018-08-05 15:28] VITALS: BMI 22.2
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
[2018-08-05] MEDS ORDERED: LOPERAMIDE HCL 2 MG CAPSULE PO PRN (20:00)
[2018-08-05] MEDS ORDERED: ACETAMINOPHEN 325 MG TABLET (FP) PO PRN (20:00)
[2018-08-05] MEDS ORDERED: MAG HYDROX/AL HYDROX/SIMETH 30 ML UNIT-DOSE CUP PO PRN (20:00)
[2018-08-05] MEDS ORDERED: NICOTINE POLACRILEX 2 MG GUM BC PRN (20:00)
[2018-08-05] MEDS ORDERED: METHADONE HCL 10 MG TABLET (FOR DETOX USE ONLY) PO ONE ×2 (20:00→23:00)
[2018-08-05] MEDS ORDERED: MENTHOL/PHENOL 1 EACH UD MM PRN (20:00)
[2018-08-05] MEDS ORDERED: MAGNESIUM HYDROX 2400MG/30ML ORAL SUSPENSION 30 ML CUP PO PRN (20:00)
[2018-08-05] MEDS ORDERED: IBUPROFEN 400 MG TABLET (FP) PO PRN (20:00)
[2018-08-05] MEDS ORDERED: MAGNESIUM CITRATE 300 ML BOTTLE PO PRN (20:00)
[2018-08-05] MEDS ORDERED: guaiFENesin 200 MG/10 ML 10 ML UNIT-DOSE CUPS PO PRN (20:03)
[2018-08-05] MEDS: diazePAM 5 MG TABLET PO PRN (21:18)
[2018-08-05] MEDS: THIAMINE HCL 100 MG TABLET (FP) PO SCH (21:18)
[2018-08-05 22:56] LABS: URINE APPEARANCE CLEAR; URINE BILIRUBIN NEGATIVE (<2.0 mg/dL); URINE COLOR YELLOW; URINE GLUCOSE (UA) NEGATIVE (NEGATIVE); URINE KETONE NEGATIVE (NEGATIVE); URINE LEUK ESTERASE NEGATIVE (NEGATIVE); URINE NITRITE NEGATIVE (NEGATIVE); URINE PROTEIN NEGATIVE (NEGATIVE); URINE UROBILINOGEN NEGATIVE mg/dL (0.2-1.0)
[2018-08-06] MEDS: diazePAM 5 MG TABLET PO PRN ×2 (09:18→18:57)
[2018-08-06] MEDS ORDERED: METHADONE HCL 10 MG TABLET (FOR DETOX USE ONLY) PO ONE (10:00)
[2018-08-06] MEDS: NICOTINE 7 MG/24 HOURS TOPICAL PATCH TD SCH (10:18)
[2018-08-06] MEDS: PANTOPRAZOLE 20 MG TABLET (FP) PO SCH (10:18)
[2018-08-06] MEDS: PRENATAL VITAMINS W/ FOLIC ACID TABLET (FP) PO SCH (10:18)
[2018-08-06 10:43] LABS: ALBUMIN 3.4 g/dl (3.4-5.0); ALK PHOS 100 U/L (45-117); ANION GAP 3 MMOL/L (8-16); BILIRUBIN,TOTAL 0.5 mg/dL (0.2-1); BLOOD UREA NITROGEN 21 mg/dL (7-18); CALCIUM 8.8 mg/dL (8.5-10.1); CHLORIDE 104 mmol/L (98-107); CO2 32 mmol/L (21-32); GLUCOSE,RANDOM 84 mg/dL (74-106); POTASSIUM 4.5 mmol/L (3.5-5.1); SGOT/AST 14 U/L (15-37); SGPT/ALT 15 U/L (13-61); SODIUM 139 mmol/L (136-145); TOT PROT 6.7 g/dl (6.4-8.2)
[2018-08-06 11:00] LABS: HEMATOCRIT 38.5 % (35.4-49); HEMOGLOBIN 13.4 GM/dL (11.7-16.9); MCH 34.4 pg (25.7-33.7); MCHC 34.9 g/dl (32.0-35.9); MEAN CELL VOLUME 98.7 fl (80-96); MEAN PLT VOLUME 7.9 fl (7.5-11.1); PLATELET COUNT 291 K/MM3 (134-434); RDW 12.5 % (11.9-15.9)
--- NOTE | 2018-08-06 11:23 | PN ---
S COWS - Scale Resting Pulse: 0= OR 80 or Below Sweatin= Chills/Flushing Restless Observation: 0= Sits Still Pupil Size: 1= Pupils >than Normal Bone or Joint Aches: 1= Mild Discomfort Runny Nose/ Eye Tearin= Nasal Congestion GI Upset > 30mins: 1= Stomach Cramp Tremor Observation of Outstretched Hands: 2= Slight Tremor Visible Yawning Observation: 2= >3x During Session Anxiety or Irritability: 2=Irritable/Anxious Goose Flesh Skin: 0=Smooth Skin COWS Score: 11 [facility] Progress Note (SOAP) Subjective: body aches tremor trouble sleep at night anxiety sweating Objective: 08/06/18 11:24 Vital Signs Temperature 97.1 F L 08/06/18 09:21 Pulse Rate 64 08/06/18 09:21 Respiratory Rate 18 08/06/18 09:21 Blood Pressure 125/77 08/06/18 09:21 O2 Sat by Pulse Oximetry (%) Laboratory Last Values WBC 7.0 K/mm3 (4.0-10.0) 08/06/18 07:00 RBC 3.90 M/mm3 (4.00-5.60) L 08/06/18 07:00 Hgb 13.4 GM/dL (11.7-16.9) 08/06/18 07:00 Hct 38.5 % (35.4-49) 08/06/18 07:00 MCV 98.7 fl (80-96) H 08/06/18 07:00 MCH 34.4 pg (25.7-33.7) H 08/06/18 07:00 MCHC 34.9 g/dl (32.0-35.9) 08/06/18 07:00 RDW 12.5 % (11.9-15.9) D 08/06/18 07:00 Plt Count 291 K/MM3 (134-434) 08/06/18 07:00 MPV 7.9 fl (7.5-11.1) 08/06/18 07:00 Sodium 139 mmol/L (136-145) 08/06/18 07:00 Potassium 4.5 mmol/L (3.5-5.1) 08/06/18 07:00 Chloride 104 mmol/L (98-107) 08/06/18 07:00 Carbon Dioxide 32 mmol/L (21-32) 08/06/18 07:00 Anion Gap 3 MMOL/L (8-16) L 08/06/18 07:00 BUN 21 mg/dL (7-18) H 08/06/18 07:00 Creatinine 1.0 mg/dL (0.55-1.3) 08/06/18 07:00 Creat Clearance w eGFR > 60 (>60) 08/06/18 07:00 Random Glucose 84 mg/dL (74-106) 08/06/18 07:00 Calcium 8.8 mg/dL (8.5-10.1) 08/06/18 07:00 Total Bilirubin 0.5 mg/dL (0.2-1) 08/06/18 07:00 AST 14 U/L (15-37) L 08/06/18 07:00 ALT 15 U/L (13-61) 08/06/18 07:00 Alkaline Phosphatase 100 U/L (45-117) 08/06/18 07:00 Total Protein 6.7 g/dl (6.4-8.2) 08/06/18 07:00 Albumin 3.4 g/dl (3.4-5.0) 08/06/18 07:00 Urine Color Yellow 08/05/18 22:45 Urine Appearance Clear 08/05/18 22:45 Urine pH 6.0 (5.0-8.0) 08/05/18 22:45 Ur Specific [place] 1.024 (1.010-1.035) 08/05/18 22:45 Urine Protein Negative (NEGATIVE) 08/05/18 22:45 Urine Glucose (UA) Negative (NEGATIVE) 08/05/18 22:45 Urine Ketones Negative (NEGATIVE) 08/05/18 22:45 Urine Blood Negative (NEGATIVE) 08/05/18 22:45 Urine Nitrite Negative (NEGATIVE) 08/05/18 22:45 Urine Bilirubin Negative (<2.0 mg/dL) 08/05/18 22:45 Urine Urobilinogen Negative mg/dL (0.2-1.0) 08/05/18 22:45 Ur Leukocyte Esterase Negative (NEGATIVE) 08/05/18 22:45 lab noted Assessment: 08/06/18 11:24 opiate withdrawal sx Plan: continue detox
[2018-08-06] MEDS: RANITIDINE HCL 150 MG TABLET (FP) PO SCH ×2 (14:47→22:30)
[2018-08-06] MEDS: NICOTINE POLACRILEX 2 MG GUM BUC PRN (15:30)
[2018-08-06] MEDS: THIAMINE HCL 100 MG TABLET (FP) PO SCH (22:30)
[2018-08-06] MEDS: MELATONIN 5 MG TABLETS PO PRN (22:30)
[2018-08-07] MEDS ORDERED: METHADONE HCL 5 MG TABLET (FOR DETOX USE ONLY) PO ONE (10:00)
[2018-08-07] MEDS: diazePAM 5 MG TABLET PO PRN ×2 (10:29→22:02)
[2018-08-07] MEDS: RANITIDINE HCL 150 MG TABLET (FP) PO SCH ×2 (10:29→22:03)
[2018-08-07] MEDS: PANTOPRAZOLE 20 MG TABLET (FP) PO SCH (10:29)
[2018-08-07] MEDS: PRENATAL VITAMINS W/ FOLIC ACID TABLET (FP) PO SCH (10:29)
[2018-08-07] MEDS: NICOTINE 7 MG/24 HOURS TOPICAL PATCH TD SCH (10:30)
[2018-08-07] MEDS: NICOTINE POLACRILEX 2 MG GUM BUC PRN ×2 (12:35→16:45)
--- NOTE | 2018-08-07 15:07 | PN ---
[facility] COWS - Scale Resting Pulse: 0= [place] 80 or Below Sweatin= Chills/Flushing Restless Observation: 0= Sits Still Pupil Size: 0= Normal to Room Light Bone or Joint Aches: 1= Mild Discomfort Runny Nose/ Eye Tearin= Nasal Congestion GI Upset > 30mins: 1= Stomach Cramp Tremor Observation of Outstretched Hands: 1= Tremor [place], Not Seen Yawning Observation: 1= 1-2x During Session Anxiety or Irritability: 1=Feels Anxious/Irritable Goose Flesh Skin: 0=Smooth Skin COWS Score: 7 S Progress Note (SOAP) Subjective: body aches muscle pains tremor Objective: 08/07/18 15:06 Vital Signs Temperature 97.8 F 08/07/18 13:45 Pulse Rate 67 08/07/18 13:45 Respiratory Rate 18 08/07/18 13:45 Blood Pressure 111/71 08/07/18 13:45 O2 Sat by Pulse Oximetry (%) Laboratory Last Values WBC 7.0 K/mm3 (4.0-10.0) 08/06/18 07:00 RBC 3.90 M/mm3 (4.00-5.60) L 08/06/18 07:00 Hgb 13.4 GM/dL (11.7-16.9) 08/06/18 07:00 Hct 38.5 % (35.4-49) 08/06/18 07:00 MCV 98.7 fl (80-96) H 08/06/18 07:00 MCH 34.4 pg (25.7-33.7) H 08/06/18 07:00 MCHC 34.9 g/dl (32.0-35.9) 08/06/18 07:00 RDW 12.5 % (11.9-15.9) D 08/06/18 07:00 Plt Count 291 K/MM3 (134-434) 08/06/18 07:00 MPV 7.9 fl (7.5-11.1) 08/06/18 07:00 Sodium 139 mmol/L (136-145) 08/06/18 07:00 Potassium 4.5 mmol/L (3.5-5.1) 08/06/18 07:00 Chloride 104 mmol/L (98-107) 08/06/18 07:00 Carbon Dioxide 32 mmol/L (21-32) 08/06/18 07:00 Anion Gap 3 MMOL/L (8-16) L 08/06/18 07:00 BUN 21 mg/dL (7-18) H 08/06/18 07:00 Creatinine 1.0 mg/dL (0.55-1.3) 08/06/18 07:00 Creat Clearance w eGFR > 60 (>60) 08/06/18 07:00 Random Glucose 84 mg/dL (74-106) 08/06/18 07:00 Calcium 8.8 mg/dL (8.5-10.1) 08/06/18 07:00 Total Bilirubin 0.5 mg/dL (0.2-1) 08/06/18 07:00 AST 14 U/L (15-37) L 08/06/18 07:00 ALT 15 U/L (13-61) 08/06/18 07:00 Alkaline Phosphatase 100 U/L (45-117) 08/06/18 07:00 Total Protein 6.7 g/dl (6.4-8.2) 08/06/18 07:00 Albumin 3.4 g/dl (3.4-5.0) 08/06/18 07:00 Urine Color Yellow 08/05/18 22:45 Urine Appearance Clear 08/05/18 22:45 Urine pH 6.0 (5.0-8.0) 08/05/18 22:45 Ur Specific [place] 1.024 (1.010-1.035) 08/05/18 22:45 Urine Protein Negative (NEGATIVE) 08/05/18 22:45 Urine Glucose (UA) Negative (NEGATIVE) 08/05/18 22:45 Urine Ketones Negative (NEGATIVE) 08/05/18 22:45 Urine Blood Negative (NEGATIVE) 08/05/18 22:45 Urine Nitrite Negative (NEGATIVE) 08/05/18 22:45 Urine Bilirubin Negative (<2.0 mg/dL) 08/05/18 22:45 Urine Urobilinogen Negative mg/dL (0.2-1.0) 08/05/18 22:45 Ur Leukocyte Esterase Negative (NEGATIVE) 08/05/18 22:45 RPR Titer Nonreactive (NONREACTIVE) 08/06/18 07:00 lab noted Assessment: 08/07/18 15:07 opiate withdrawal sx Plan: continue detox
[2018-08-07] MEDS: THIAMINE HCL 100 MG TABLET (FP) PO SCH (22:03)
[2018-08-07] MEDS: MELATONIN 5 MG TABLETS PO PRN (22:03)
[2018-08-08] MEDS ORDERED: METHADONE HCL 5 MG TABLET (FOR DETOX USE ONLY) PO ONE (10:00)
[2018-08-08] MEDS: NICOTINE 7 MG/24 HOURS TOPICAL PATCH TD SCH (10:16)
[2018-08-08] MEDS: RANITIDINE HCL 150 MG TABLET (FP) PO SCH ×2 (10:17→22:17)
[2018-08-08] MEDS: PRENATAL VITAMINS W/ FOLIC ACID TABLET (FP) PO SCH (10:17)
[2018-08-08] MEDS: diazePAM 5 MG TABLET PO PRN ×3 (10:17→19:25)
[2018-08-08] MEDS: PANTOPRAZOLE 20 MG TABLET (FP) PO SCH (10:17)
[2018-08-08] MEDS: NICOTINE POLACRILEX 2 MG GUM BUC PRN (13:19)
--- NOTE | 2018-08-08 13:28 | PN ---
[facility] COWS - Scale Resting Pulse: 0= [place] 80 or Below Sweatin= Chills/Flushing Restless Observation: 0= Sits Still Pupil Size: 0= Normal to Room Light Bone or Joint Aches: 1= Mild Discomfort Runny Nose/ Eye Tearin= None GI Upset > 30mins: 0= None Tremor Observation of Outstretched Hands: 1= Tremor [place], Not Seen Yawning Observation: 0= None Anxiety or Irritability: 0= None Goose Flesh Skin: 0=Smooth Skin COWS Score: 3 [facility] Progress Note (SOAP) Subjective: feeling better mild body aches less sweating sleep better at night Objective: 08/08/18 13:27 Vital Signs Temperature 97.6 F 08/08/18 09:56 Pulse Rate 67 08/08/18 09:56 Respiratory Rate 16 08/08/18 09:56 Blood Pressure 112/71 08/08/18 09:56 O2 Sat by Pulse Oximetry (%) Laboratory Last Values WBC 7.0 K/mm3 (4.0-10.0) 08/06/18 07:00 RBC 3.90 M/mm3 (4.00-5.60) L 08/06/18 07:00 Hgb 13.4 GM/dL (11.7-16.9) 08/06/18 07:00 Hct 38.5 % (35.4-49) 08/06/18 07:00 MCV 98.7 fl (80-96) H 08/06/18 07:00 MCH 34.4 pg (25.7-33.7) H 08/06/18 07:00 MCHC 34.9 g/dl (32.0-35.9) 08/06/18 07:00 RDW 12.5 % (11.9-15.9) D 08/06/18 07:00 Plt Count 291 K/MM3 (134-434) 08/06/18 07:00 MPV 7.9 fl (7.5-11.1) 08/06/18 07:00 Sodium 139 mmol/L (136-145) 08/06/18 07:00 Potassium 4.5 mmol/L (3.5-5.1) 08/06/18 07:00 Chloride 104 mmol/L (98-107) 08/06/18 07:00 Carbon Dioxide 32 mmol/L (21-32) 08/06/18 07:00 Anion Gap 3 MMOL/L (8-16) L 08/06/18 07:00 BUN 21 mg/dL (7-18) H 08/06/18 07:00 Creatinine 1.0 mg/dL (0.55-1.3) 08/06/18 07:00 Creat Clearance w eGFR > 60 (>60) 08/06/18 07:00 Random Glucose 84 mg/dL (74-106) 08/06/18 07:00 Calcium 8.8 mg/dL (8.5-10.1) 08/06/18 07:00 Total Bilirubin 0.5 mg/dL (0.2-1) 08/06/18 07:00 AST 14 U/L (15-37) L 08/06/18 07:00 ALT 15 U/L (13-61) 08/06/18 07:00 Alkaline Phosphatase 100 U/L (45-117) 08/06/18 07:00 Total Protein 6.7 g/dl (6.4-8.2) 08/06/18 07:00 Albumin 3.4 g/dl (3.4-5.0) 08/06/18 07:00 Urine Color Yellow 08/05/18 22:45 Urine Appearance Clear 08/05/18 22:45 Urine pH 6.0 (5.0-8.0) 08/05/18 22:45 Ur Specific [place] 1.024 (1.010-1.035) 08/05/18 22:45 Urine Protein Negative (NEGATIVE) 08/05/18 22:45 Urine Glucose (UA) Negative (NEGATIVE) 08/05/18 22:45 Urine Ketones Negative (NEGATIVE) 08/05/18 22:45 Urine Blood Negative (NEGATIVE) 08/05/18 22:45 Urine Nitrite Negative (NEGATIVE) 08/05/18 22:45 Urine Bilirubin Negative (<2.0 mg/dL) 08/05/18 22:45 Urine Urobilinogen Negative mg/dL (0.2-1.0) 08/05/18 22:45 Ur Leukocyte Esterase Negative (NEGATIVE) 08/05/18 22:45 RPR Titer Nonreactive (NONREACTIVE) 08/06/18 07:00 lab noted Assessment: 08/08/18 13:28 mild withdrawal sx Plan: continue detox patient was on suboxone program by history and was doing well, patient wants to return to suboxne program on Sunday discontinue methadone 10 mg and patient will received methadone 5 mg at 6 am
[2018-08-08] MEDS: MELATONIN 5 MG TABLETS PO PRN (22:17)
[2018-08-08] MEDS: THIAMINE HCL 100 MG TABLET (FP) PO SCH (22:17)
[2018-08-09] MEDS ORDERED: METHADONE HCL 5 MG TABLET (FOR DETOX USE ONLY) PO ONE (06:00)
[2018-08-09 06:46] VITALS: BP 99/57; PULSE 59; TEMP 96.8
[2018-08-09] MEDS ORDERED: METHADONE HCL 10 MG TABLET (FOR DETOX USE ONLY) PO ONE (10:00)
[2018-08-10] MEDS ORDERED: METHADONE HCL 5 MG TABLET (FOR DETOX USE ONLY) PO ONE (06:00)
--- NOTE | 2018-08-11 19:48 | DS ---
[facility] Detox Discharge Summary Admission Date: 08/05/18 Discharge Date: 08/09/18 - History Present History: Cannabis Dependence, Cocaine Dependence, Opioid Dependence Additional Comments: PATIENT GOING TO [facility] ([place], [place]) FOR SUBOXONE MAINTENANCE TREATMENT FOR AFTERCARE. PATIENT WAS DISCHARGED FROM DETOX UNIT IN STABLE MEDICAL CONDITION. Pertinent Past History: History of Depression, History of Bipolar Disorder, History of Schizophrenia, G.E.R.D, Weight Loss, Nicotine Dependence, Chronic Back Pain. - Physical Exam Results Vital Signs: Vital Signs Temperature 96.8 F L 08/09/18 06:45 Pulse Rate 59 L 08/09/18 06:45 Respiratory Rate 18 08/09/18 06:45 Blood Pressure 99/57 L 08/09/18 06:45 O2 Sat by Pulse Oximetry (%) Pertinent Admission Physical Exam Findings: WITHDRAWAL SYMPTOMS. Laboratory Tests 08/05/18 08/06/18 08/06/18 22:45 07:00 07:00 WBC 7.0 RBC 3.90 L Hgb 13.4 Hct 38.5 MCV 98.7 H MCH 34.4 H MCHC 34.9 RDW 12.5 D Plt Count 291 MPV 7.9 Sodium 139 Potassium 4.5 Chloride 104 Carbon Dioxide 32 Anion Gap 3 L BUN 21 H Creatinine 1.0 Creat Clearance w eGFR > 60 Random Glucose 84 Calcium 8.8 Total Bilirubin 0.5 AST 14 L ALT 15 Alkaline Phosphatase 100 Total Protein 6.7 Albumin 3.4 Urine Color Yellow Urine Appearance Clear Urine pH 6.0 Ur Specific [place] 1.024 Urine Protein Negative Urine Glucose (UA) Negative Urine Ketones Negative Urine Blood Negative Urine Nitrite Negative Urine Bilirubin Negative Urine Urobilinogen Negative Ur Leukocyte Esterase Negative RPR Titer 08/06/18 07:00 WBC RBC Hgb Hct MCV MCH MCHC RDW Plt Count MPV Sodium Potassium Chloride Carbon Dioxide Anion Gap BUN Creatinine Creat Clearance w eGFR Random Glucose Calcium Total Bilirubin AST ALT Alkaline Phosphatase Total Protein Albumin Urine Color Urine Appearance Urine pH Ur Specific [place] Urine Protein Urine Glucose (UA) Urine Ketones Urine Blood Urine Nitrite Urine Bilirubin Urine Urobilinogen Ur Leukocyte Esterase RPR Titer Nonreactive LABS NOTED. - Treatment Hospital Course: Detox Protocol Followed, Detoxed Safely, Responded well, Discharged Condition Good Patient has Accepted a Rehab Referral to: PT. GOING TO [facility] FOR SUBOXONE MAINTENANCE TREATMENT. - Medication Discharge Medications: Ambulatory Orders Naloxone HCl [Narcan] 4 mg NS ASDIR PRN #1 spray 08/08/18 - Diagnosis (1) Chronic low back pain Status: Acute Qualifiers: Back pain laterality: midline Sciatica presence: without sciatica Qualified Code(s): M54.5 - Low back pain; G89.29 - Other chronic pain (2) Opioid dependence with withdrawal Status: Acute (3) Cannabis dependence Status: Chronic (4) Cocaine dependence Status: Chronic Qualifiers: Substance use status: uncomplicated Qualified Code(s): F14.20 - Cocaine dependence, uncomplicated (5) GERD (gastroesophageal reflux disease) Status: Chronic Qualifiers: Esophagitis presence: without esophagitis Qualified Code(s): K21.9 - Gastro -esophageal reflux disease without esophagitis (6) Nicotine dependence Status: Chronic Qualifiers: Nicotine product type: cigarettes Substance use status: uncomplicated Qualified Code(s): F17.210 - Nicotine dependence, cigarettes, uncomplicated (7) Weight loss Status: Chronic - AMA Did Patient Leave Against Medical Advice: No
== END 2018-08-09 08:53 | disposition home or self-care (01) | DRG 773 ==
LOC: YASAS 14:29 → UNDOADMIN 17:10 → Y3N 17:10
PROVIDERS: ADMIT Surgery; ATTEND Surgery
PROC: HZ2ZZZZ Detoxification Services for Substance Abuse Treatment (ICD-10-PCS; principal; 2018-08-05)
DX: F11.23 Opioid dependence with withdrawal (principal); F14.20 Cocaine dependence, uncomplicated; F12.20 Cannabis dependence, uncomplicated; F17.210 Nicotine dependence, cigarettes, uncomplicated; F31.9 Bipolar disorder, unspecified; K21.9 Gastro-esophageal reflux disease without esophagitis; M54.5 Low back pain; G89.29 Other chronic pain; Z91.5 Personal history of self-harm
CPT/HCPCS: 36415; 80053; 81003; 85027; 86593